=== PATIENT | male | born 1990 | race African-American/Black ===

== ENCOUNTER 2021-11-03 19:38 | Outpatient (REF) | payer BC, SELFPAY ==
[2021-11-03 21:09] LABS: Abs Immature Grans 0.04 10^3/uL (0.0-0.06); Absolute Basophil Count 0.08 10^3/uL (0.0-0.2); Absolute Lymphocyte Count 2.57 10^3/uL (1.2-3.4); Absolute Monocyte Count 0.58 10^3/uL (0.1-0.8); Absolute Neutrophil Count 5.63 10^3/uL (1.2-6.7); Basophils % 0.9; Eosinophils % 2.2; HCT 46.9 % (40.0-50.0); HGB 16.1 g/dL (13.5-17.5); Immature Grans % 0.4; Lymphocytes % 28.2; MCH 32.3 pg (27.0-33.0); MCHC 34.3 % (32.0-36.0); MCV 94.2 fL (80-95); MPV 9.6 fL (8.0-11.0); Monocytes % 6.4; Neutrophils % 61.9; Nucleated RBC 0 %; Platelet Count 246 10^3/uL (130-400); RBC 4.98 10^6/uL (4.36-5.78); RDW 11.4 % (11.8-14.1); RDW-SD 39.4 fL
[2021-11-03 21:12] LABS: Anion Gap 8.3 mmol/L (3-11); BUN 15 mg/dL (7-18); CO2 28.7 mmol/L (21.0-32.0); CREATININE 1.1 mg/dL (0.70-1.30); Chloride 102 mmol/L (98-107); Glucose 95 mg/dL (74-106); Potassium 4.3 mmol/L (3.5-5.1); Sodium 139 mmol/L (136-145)
== END 2021-11-03 19:39 | disposition home or self-care (01) ==
LOC: LBN 19:38
PROVIDERS: PCP Family Medicine; Visit Provider Family Medicine
DX: R03.0 Elevated blood-pressure reading, without diagnosis of hypertension (principal)
CPT/HCPCS: 80048; 85025

== ENCOUNTER 2022-06-01 15:33 | Outpatient (REF) | payer BC, SELFPAY ==
[2022-06-01 19:42] LABS: TSH (W/Ref FT4) 1.48 uIU/mL (0.36-3.74)
== END 2022-06-01 15:34 | disposition home or self-care (01) ==
LOC: NCHCN 15:33
PROVIDERS: PCP Family Medicine; Visit Provider Family Medicine
DX: R03.0 Elevated blood-pressure reading, without diagnosis of hypertension (principal)
CPT/HCPCS: 84443

== ENCOUNTER 2022-12-28 17:20 | Outpatient (REF) | payer BC, SELFPAY ==
[2022-12-28 18:34] LABS: Calculated LDL 192 mg/dL (<100); Cholesterol 290 mg/dL (<200); Estimated GFR 102.55 (mL/min/1.73m2); HDL Cholesterol 54 mg/dL (40-60); Triglyceride 223 mg/dL (<150)
[2022-12-30 11:20] LABS: Hepatitis C Ab w Rflx HCV PCR Negative (Negative)
== END 2022-12-28 17:21 | disposition home or self-care (01) ==
LOC: NCHCN 17:20
PROVIDERS: PCP Family Medicine; Visit Provider Family Medicine
DX: Z00.00 Encounter for general adult medical examination without abnormal findings (principal); Z11.59 Encounter for screening for other viral diseases; Z13.220 Encounter for screening for lipoid disorders
CPT/HCPCS: 80061; 86803; 82565

== ENCOUNTER 2023-01-20 18:16 | Emergency (ER) | payer BC, SELFPAY ==
[2023-01-20 18:32] VITALS: BP 137/84; PULSE 84; RESP 16; TEMP 36.6; O2SAT 98
--- NOTE | 2023-01-20 19:50 | ED.GENADUL_ITS ---
Discharge Plan Disposition Patient Disposition: Home Discharge Details Clinical Impression: Finger laceration Primary Care Provider: Arminda Vargas ED Provider: Mao Herman Home Meds and New Rx's Prescriptions: No Action amlodipine 5 mg tablet 5 mg PO DAILY Ondansetron ODT, 3 tabs/btl [Zofran ODT, 3 tabs/btl] 4 MG bottle 4 mg PO DISPENSE Qty: 3 0RF Rx Instructions: HOME USE. 1 TABLET EVERY 6 HRS IF NEEDED FOR NAUSEA Discharge Instructions Instructions: Finger Laceration (ED), Skin Adhesive Care (ED) Additional Instructions: Watch for any signs of infection and return immediately to the emergency department if these occur. Otherwise keep wound clean and dry. Referrals: Arminda Vargas MD [Primary Care Provider] - Discharge Data Discharge Date/Time-TO BE ENTERED AT DEPARTURE: 01/20/23 19:57 Medical Decision Making Superficial flap laceration to right index finger. Wound edges were slightly revised otherwise flap was put in place with Dermabond. Wound was well approximated. This was done after thorough irrigation and cleansing of wound sterile technique was utilized. Patient up-to-date on tetanus. after discussion of diagnosis and plan of care patient has no further needs, questions, or concerns and states clear understanding to return to the emergency department for any worsening symptoms. This documentation was generated using [employer] dictation system, please disregard any oddities of phrase or misspellings. HPI General Mode of arrival: ambulatory . Date/Time Provider Initiated Documentation: 01/20/23 19:50 . Limitations to Documentation: no limitations . Information obtained by: patient . History of Present Illness 33 year old M presents to the emergency department with the chief complaint of Right index finger laceration, described as mild, with intensity rated at 4. Quality is described as sharp, and is localized to the right. Patient reports no radiation. Patient started experiencing this hour(s) (1) and it has been constant. No relieving factors improve symptom(s), No exacerbating factors reported . Patient notes no other symptoms.. Patient did receive the following treatments prior to arrival, none Related Data Home Medications Medication Instructions Recorded Confirmed Ondansetron ODT, 3 tabs/btl 4 mg PO DISPENSE ##3 12/05/17 01/20/23 [Zofran ODT, 3 tabs/btl] amlodipine 5 mg tablet 5 mg PO DAILY 11/26/21 01/20/23 Previous Rx's Medication Instructions Recorded Ondansetron ODT, 3 tabs/btl 4 mg PO DISPENSE ##3 12/05/17 [Zofran ODT, 3 tabs/btl] Allergies Allergy/AdvReac Type Severity Reaction Status Date / Time No Known Allergies Allergy Unverified 01/13/23 13:01 General Stated Complaint: Laceration CORINA: 4 Review of Systems Narrative: 6 systems reviewed and unremarkable except what is marked below. Musculoskeletal Musculoskeletal: Denies limited range of motion, Denies numbness and Denies tingling Integumentary/Breasts Skin/Breast: Reports as per HPI and Reports wounds Neurologic Neurologic: Denies numbness and Denies tingling PFSH All Active Problems Finger laceration (Acute) Deviated nasal septum (Acute) Snoring (Acute) Nasal congestion (Acute) Nasal obstruction (Acute) Medical History Anxiety disorder Elevated blood pressure reading Family History Father , ovedose Substance use disorder Mother Alcohol use disorder Social History Smoking/Tobacco Use Status: Never Smoking risk assessment performed?: Yes Alcohol Intake: current Alcohol Intake frequency: a few times a week Drug use: Never Household members: spouse and children 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 Pets and animals: Yes Pets and animals: dog(s) What is your relationship status?: Panel score (0-1 are the most socially isolated patients): 1 Do you feel safe in your relationship?: Yes Exam Const General: cooperative, no acute distress and not ill appearing Orientation: alert, awake and oriented x3 HENMT Mouth: moist mucous membranes Resp Effort & Inspection: normal respiratory effort, able to speak in complete sentences and no respiratory distress Cardio Rate: regular rate Rhythm: regular rhythm Pulses: normal peripheral pulses Skin General skin exam: no rashes or lesions noted Neuro General: patient alert, patient awake, patient oriented x3, moves all extremities and no focal motor deficits Sensory Exam: no sensory deficits noted Extrem General: normal exam except as noted Right upper extremity: hand Details: neuromotor exam normal, neurosensory exam normal, tendon exam normal, tenderness Location: of the 2nd digit Location: at the distal phalanx, normal ROM of fingers and laceration 2nd digit palmar aspect distal Details: flap, avulsion, actively bleeding, superficial, with motor nerve function intact and with sensation intact; not involving subcutaneous tissue Course Vital Signs Vital signs: Vital Signs Temperature 36.6 C 01/20/23 18:32 Pulse 84 01/20/23 18:32 Respiratory Rate 16 01/20/23 18:32 Blood Pressure 137/84 01/20/23 18:32 Pulse Oximetry 98 01/20/23 18:32 Temperature 36.6 C 01/20/23 18:32 Temperature Source Oral 01/20/23 18:32 Pulse 84 01/20/23 18:32 Respiratory Rate 16 01/20/23 18:32 Blood Pressure 137/84 01/20/23 18:32 Blood Pressure Position Sitting 01/20/23 18:32 Pulse Oximetry 98 01/20/23 18:32 Oxygen Delivery Method Room Air 01/20/23 18:32 Oxygen Flow Rate 0 01/20/23 18:32 Pain Level 1 01/20/23 18:32
== END 2023-01-20 19:57 | disposition home or self-care (01) ==
PROVIDERS: Emergency Provider Nurse Practitioner Family; PCP Family Medicine
DX: S61.210A Laceration without foreign body of right index finger without damage to nail, initial encounter (principal); W45.8XXA Other foreign body or object entering through skin, initial encounter; Y93.G9 Activity, other involving cooking and grilling
CPT/HCPCS: 99282; 99283

== ENCOUNTER 2024-05-16 22:33 | Outpatient (REF) | payer BC, SELFPAY | END 2024-05-16 22:34 | disposition home or self-care (01) | LOC: LBN 22:33 | PROVIDERS: PCP Family Medicine; Visit Provider Nurse Practitioner Family | DX: L08.89 Other specified local infections of the skin and subcutaneous tissue (principal) | CPT/HCPCS: 87077; 87070; 87186; 87205 ==

== ENCOUNTER 2025-03-06 10:39 | Emergency (ER) | payer BC, SELFPAY ==
[2025-03-06 10:43] VITALS: BP 148/93; PULSE 91; RESP 16; TEMP 36.4; O2SAT 98
[2025-03-06 11:01] VITALS: RESP 18
--- NOTE | 2025-03-06 11:15 | DI.CT_ITS ---
Exam(s) CT HEAD WO EXAM: CT HEAD WO CLINICAL HISTORY: confusion, dizzy, right ear pain. TECHNIQUE: Imaging Protocol: Axial computed tomography images with coronal and sagittal reformatted images were created and reviewed COMPARISON: No exams were available for comparison FINDINGS: There are no skull fractures. There is no fluid in the visualized paranasal sinuses. Mastoid air sarah ls are also clear. There is no fluid in the middle ear cavities. There is no evidence of intracranial hemorrhage, mass effect, or shift of midline structures. There are no extra-axial fluid collections. The ventricles are not enlarged or shifted and there is no blo od within the ventricular system nor within the basal cisterns. IMPRESSION: No acute intracranial findings on this noninfused CT scan of the brain. Report called by myself to emergency room 03/06/2025 at 12:13 p.m. RADIATION DOSE DELIVERED: 932.16mGy.cm Total DLP DATA REPOSITORY: All CT scans at this facility are submitted to the National Radiology Data Registry (NRDR) Dose Index Registry (DIR) with the [employer] (ACR). RADIATION OPTIMIZATION: All CT scans at this facility use at least one of these dose optimization te chniques: automated exposure control; mA and/or kV adjustment per patient size (includes targeted exa ms where dose is matched to clinical indication); or iterative reconstruction.
[2025-03-06 11:46] LABS: Bilirubin Negative (Negative); Blood Negative (Negative); Clarity Clear (Clear); Glucose Negative (Negative); Ketones Negative (Negative); Leukocyte Esterase Negative (Negative); Nitrite Negative (Negative); Urobilinogen 0.2 mg/dL (Up to 0.2); pH 5.5 (5-8)
[2025-03-06 12:02] VITALS: BP 148/90; PULSE 81; O2SAT 100
[2025-03-06 12:06] LABS: Abs Immature Grans 0.02 10^3/uL (0.0-0.06); Absolute Basophil Count 0.14 10^3/uL (0.0-0.2); Absolute Eosinophil Count 0.08 10^3/uL (0.0-0.7); Absolute Lymphocyte Count 2.14 10^3/uL (1.2-3.4); Absolute Monocyte Count 0.59 10^3/uL (0.1-0.8); Absolute Neutrophil Count 3.59 10^3/uL (1.2-6.7); Basophils % 2.1 %; Eosinophils % 1.2 %; HCT 42.9 % (40.0-50.0); HGB 14.1 g/dL (13.5-17.5); Immature Grans % 0.3 %; Lymphocytes % 32.6 %; MCHC 32.9 % (32.0-36.0); MCV 85 fL (80-95); MPV 8.8 fL (8.0-11.0); Neutrophils % 54.8 %; Platelet Count 260 10^3/uL (130-400); RBC 5.03 10^6/uL (4.36-5.78); RDW 18.4 % (11.8-14.1); RDW-SD 56.4 fL; WBC 6.56 10^3/uL (4.4-10.8)
[2025-03-06 12:06] LABS: *AMPHETAMINES SCREEN URINE Negative (Negative); *BARBITURATES SCREEN URINE Negative (Negative); *BENZODIAZEPINES SCREEN URINE Negative (Negative); Cannabinoids THC Negative (Negative); Cocaine Screen,Urine Negative (Negative); METHADONE URINE SCREEN Negative (Negative); OPIATES URINE SCREEN Negative (Negative); Tricyclic Antidepressants Negative (Negative)
[2025-03-06 12:08] LABS: ESR 18 mm/hr (0-15)
[2025-03-06 12:31] LABS: ETHANOL BLOOD 325.2 mg/dL (<10)
[2025-03-06 12:38] LABS: ALT 125 U/L (16-63); AST 134 U/L (15-37); Albumin 4.4 g/dL (3.4-5.0); Alkaline Phosphatase 105 U/L (46-116); Anion Gap 10.7 mmol/L (3-11); BUN 6 mg/dL (7-18); Bilirubin, Total 0.7 mg/dL (0.2-1.0); CO2 29.3 mmol/L (21.0-32.0); CREATININE 0.9 mg/dL (0.70-1.30); Calcium 9.2 mg/dL (8.5-10.1); Chloride 102 mmol/L (98-107); Estimated GFR 114.22 (mL/min/1.73m2); Glucose 99 mg/dL (74-106); Magnesium 2.3 mg/dL (1.8-2.4); Potassium 4.4 mmol/L (3.5-5.1); Sodium 142 mmol/L (136-145); TSH (W/Ref FT4) 1.44 uIU/mL (0.36-3.74); Total Protein 9.8 g/dL (6.4-8.2)
[2025-03-06 12:39] LABS: C-Reactive Protein < 0.50 mg/dL (<or=0.5)
[2025-03-06 14:08] VITALS: BP 146/94; PULSE 89; RESP 18; O2SAT 99
--- NOTE | 2025-03-07 08:23 | W.ED.GENAD ---
Discharge Plan Disposition Patient Disposition: Home Condition: Stable Discharge Details Clinical Impression: Anxiety, Alcohol dependence, Elevated transaminase level Primary Care Provider: Ellis Chacon ED Provider: Christi Mccord Home Meds and New Rx's Prescriptions: Continued amlodipine 5 mg tablet 5 mg PO DAILY Discharge Instructions Instructions: Alcohol Use Disorder (DC) Additional Instructions: you have an appointment on March 20 at 140 in the afternoon with your pcp, it is really important that you go to this appointment I recommend starting AA meetings and working on going to rehabilitation you will need counseling appt , please talk to your doctor please taper down by one drink daily, never stop drinking alcohol abruptly follow up with [facility] have your liver enzymes rechecked by pcp Referrals: [facility] [Outside] [facility] [Outside] Ellis Chacon [Primary Care Provider] - Discharge Data Discharge Date/Time-TO BE ENTERED AT DEPARTURE: 03/06/25 14:32 HPI General Date/Time Provider Initiated Documentation: 03/06/25 10:47. HPI Narrative: 35-year-old male with anxiety, intermittent right ear tinnitus, and increased alcohol consumption. Significant anxiety at home, occasional confusion noted by , unemployed, two children. Intermittent right ear pain with tinnitus, history of multiple childhood concussions, no recent head injuries. Alcohol intake: six beers and several mixed drinks nightly, also drinks but less, unemployed. Related Data Home Medications ?Medication ?Instructions ?Recorded ?Confirmed amlodipine 5 mg tablet 5 mg PO DAILY 11/26/21 03/06/25 Allergies Allergy/AdvReac Type Severity Reaction Status Date / Time No Known Allergies Allergy Unverified 03/06/25 10:50 General Stated Complaint: Anxiety CORINA: 3 Exam Narrative Exam Narrative: General Appearance: Alert and oriented x4. Vital signs: Within normal limits. HEENT: PERRLA, fluid behind right tympanic membrane, no infection, no trauma to scalp visualized no cervical spine tenderness Respiratory: Lungs clear. Cardiovascular: Regular cardiac rate and rhythm. Back, Musculoskeletal: Spine tenderness. Skin: Warm and dry, no rash. Neurological: Normal. Ambulatory with cautious gait able to follow basic commands Other observations: cautious gait. Course Vital Signs Vital signs: Vital Signs Temperature 36.4 C L 03/06/25 10:43 Pulse 91 H 03/06/25 10:43 Respiratory Rate 16 03/06/25 10:43 Blood Pressure 148/93 H 03/06/25 10:43 Pulse Oximetry 98 03/06/25 10:43 Temperature 36.4 C L 03/06/25 10:43 Temperature Source Oral 03/06/25 10:43 Pulse 89 03/06/25 14:08 Respiratory Rate 18 03/06/25 14:08 Respiratory Effort Normal, Non-Labored 03/06/25 14:08 Respiratory Depth Normal 03/06/25 14:08 Respiratory Pattern Normal 03/06/25 14:08 Blood Pressure 146/94 H 03/06/25 14:08 Blood Pressure Mean 111 03/06/25 14:08 Blood Pressure Position Sitting 03/06/25 14:08 Pulse Oximetry 99 03/06/25 14:08 Oxygen Delivery Method Room Air 03/06/25 14:08 Oxygen Flow Rate 0 03/06/25 14:08 Pain Level 0 03/06/25 10:43 Lab/Test Results Lab/Test Results: Laboratory Tests Range/Units 03/06/25 03/06/25 11:34 11:57 WBC (4.4-10.8) 10^3/uL 6.56 RBC (4.36-5.78) 10^6/uL 5.03 Hgb (13.5-17.5) g/dL 14.1 Hct (40.0-50.0) % 42.9 MCV (80-95) fL 85 MCH (27.0-33.0) pg 28.0 MCHC (32.0-36.0) % 32.9 RDW (11.8-14.1) % 18.4 H Plt Count (130-400) 10^3/uL 260 MPV (8.0-11.0) fL 8.8 Immature Gran % % 0.3 Neutrophils % % 54.8 Lymphocytes % % 32.6 Monocytes % % 9.0 Eosinophils % % 1.2 Basophils % % 2.1 Nucleated RBC % (0.0-0.3) % 0.0 Absolute Neutrophils (1.2-6.7) 10^3/uL 3.59 Absolute Lymphocytes (1.2-3.4) 10^3/uL 2.14 Absolute Monocytes (0.1-0.8) 10^3/uL 0.59 Absolute Eosinophils (0.0-0.7) 10^3/uL 0.08 Absolute Basophils (0.0-0.2) 10^3/uL 0.14 ESR (0-15) mm/hr 18 H Sodium (136-145) mmol/L 142 Potassium (3.5-5.1) mmol/L 4.4 Chloride (98-107) mmol/L 102 Carbon Dioxide (21.0-32.0) mmol/L 29.3 Anion Gap (3-11) mmol/L 10.7 BUN (7-18) mg/dL 6 L Creatinine (0.70-1.30) mg/dL 0.9 Est GFR (CKD-EPI 2020) (mL/min/1.73m2) 114.22 Glucose (74-106) mg/dL 99 Calcium (8.5-10.1) mg/dL 9.2 Magnesium (1.8-2.4) mg/dL 2.3 Total Bilirubin (0.2-1.0) mg/dL 0.7 AST (15-37) U/L 134 H ALT (16-63) U/L 125 H Alkaline Phosphatase (46-116) U/L 105 C-Reactive Protein (<or=0.5) mg/dL < 0.50 Total Protein (6.4-8.2) g/dL 9.8 H Albumin (3.4-5.0) g/dL 4.4 TSH (0.36-3.74) uIU/mL 1.44 Urine Color (Yellow) Yellow Urine Clarity (Clear) Clear Urine pH (5-8) 5.5 Ur Specific Barton (1.005-1.025) 1.010 Urine Protein (Neg-Trace) mg/dL Negative Urine Ketones (Negative) mg/dL Negative Urine Blood (Negative) Negative Urine Nitrite (Negative) Negative Urine Bilirubin (Negative) Negative Urine Urobilinogen (Up to 0.2) mg/dL 0.2 Ur Leukocyte Esterase (Negative) Negative Urine Glucose (Negative) mg/dL Negative Urine Opiates Screen (Negative) Negative Urine Methadone Screen (Negative) Negative Ur Barbiturates Screen (Negative) Negative Ur Tricyclics Screen (Negative) Negative Ur Amphetamines Screen (Negative) Negative U Benzodiazepines Scrn (Negative) Negative Urine Cocaine Screen (Negative) Negative Ur THC Screen (Negative) Negative Ethyl Alcohol (<10) mg/dL 325.2 H Medical Decision Making Blood alcohol level 325, elevated liver enzymes (AST 134, ALT 125), normal urinalysis. CT head: no acute abnormality. Initial Assessment: 35-year-old male with anxiety, intermittent right ear ringing, increased alcohol consumption, and general anxiety. reports occasional confusion. Elevated liver enzymes and high blood alcohol level. Differential Diagnosis: - Alcohol Use Disorder: Elevated liver enzymes (AST 134, ALT 125), blood alcohol level 325. Advised multivitamin, thiamine supplementation, gradual reduction of alcohol intake by one drink per day until abstinence. Remove all alcohol from home once both parents taper off. 's appointment today at 1600 hours, earliest available appointment for him on 03/20/2025. Recovery phone assessment and daily calls for 10 days. Interested in AA meetings. Discussed follow-up with primary care physician and Recovery. - Anxiety: Anxiety at home, possibly exacerbated by alcohol use and family situation. Encouraged to seek support and resources. Follow-up with primary care physician for evaluation and management. - Tinnitus: Intermittent right ear ringing and pain, fluid behind right tympanic membrane, no infection. Monitor symptoms and report changes. ED Course: - Blood alcohol level measured at 325. - Liver enzymes elevated (AST 134, ALT 125). - Urinalysis within normal limits. - Tick panel pending. - CT head shows no evidence of acute abnormality, read by me. - Multivitamin encouraged. - Thiamine supplementation discussed. - Discussion regarding Librium, decided against due to risk-benefit analysis. - Plan to taper off alcohol by one drink daily. - 's appointment at 1600 hours with PCP. - Called [facility] for earlier appointment, scheduled for 03/20/2025. - Recovery phone assessment and daily calls for 10 days. - Patient interested in AA meetings. - Spent 15 minutes discussing plan with patient and . Final Assessment: Elevated liver enzymes and high blood alcohol level. Anxiety possibly exacerbated by alcohol use and family situation. Intermittent right ear ringing and pain with fluid behind tympanic membrane. Clinical Impression: - Alcohol Use Disorder - Anxiety - Tinnitus Disposition: - Follow-Up: 's appointment today at 1600 hours with PCP. Patient's appointment on 03/20/2025. Recovery phone assessment and daily calls for 10 days. Follow-up with primary care physician. Patient Education: Discussed importance of tapering off alcohol, multivitamin, thiamine supplementation, and follow-up with primary care physician and Recovery. MDM Components Evaluation: - Number of Differential Diagnoses or Management Options: Alcohol Use Disorder, Anxiety, Tinnitus - Amount and Complexity of Data Reviewed: Blood alcohol level, liver enzymes, urinalysis, tick panel, CT head - Risk of Complication and Morbidity or Mortality: High risk due to elevated liver enzymes, high blood alcohol level, and potential complications from alcohol use and anxiety. Quality:SDOH Health Related Social Needs: No Data to Display PFSH All Active Problems (Updated 03/06/25 @ 14:16 by THANG Patton) Elevated transaminase level (Acute) Alcohol dependence (Acute) Anxiety (Chronic) Deviated nasal septum (Acute) Snoring (Acute) Nasal congestion (Acute) Nasal obstruction (Acute) Medical History Anxiety disorder Elevated blood pressure reading Family History Father , ovedose Substance use disorder Mother Alcohol use disorder Social History Smoking/Tobacco Use Status: Never Smoking risk assessment performed?: Yes Alcohol Intake: current Alcohol Intake frequency: a few times a week Drug use: Never Household members: spouse and children 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 Pets and animals: Yes Pets and animals: dog(s) What is your relationship status?: Panel score (0-1 are the most socially isolated patients): 1 Do you feel safe at home: Yes Do you feel safe in your relationship?: Yes PAWSS Have you Been Recently Intoxicated or Drunk Within the Last 30 days?: Yes Have you Ever Experienced Previous Episodes of Alcohol Withdrawal?: Yes Have you ever Experienced Withdrawal Seizures?: No Have you ever Experienced Delirium Tremens(DT)s?: Yes Have you ever undergone Alcohol Rehabilitation Treatment (i.e, inpt ot outpatient treatment programs)?: No Have you ever Experienced Blackouts?: Yes Have you ever Combined Alcohol with other Downers within the last 90 days?: No Have you ever Combined Alcohol with any other Substance of Abuse during the last 90 days?: Yes Positive Blood Alcohol level on Presentation? [PCS.BAL]: No Evidence of Increased Autonomic Activity (i.e. HR>120, tremor, sweating, agitation, nausea)?: No Result: 6
[2025-03-07 12:14] LABS: Lyme Ab w Rflx to Lyme Confirm Negative (Negative)
[2025-03-09 14:17] LABS: Anaplasma phagocytophilum Negative (Negative); B. miyamotoi PCR Negative (Negative); Babesia divergens/MO-1 Negative (Negative); Babesia duncani Negative (Negative); Babesia microti Negative (Negative); Ehrlichia chaffeensis Negative (Negative); Ehrlichia ewingii/canis Negative (Negative); Ehrlichia muris eauclairensis Negative (Negative)
== END 2025-03-06 14:32 | disposition home or self-care (01) ==
PROVIDERS: Emergency Provider Physician Assistant; PCP Family Medicine
DX: F41.9 Anxiety disorder, unspecified (principal); F10.220 Alcohol dependence with intoxication, uncomplicated; R74.01 Elevation of levels of liver transaminase levels; Y90.8 Blood alcohol level of 240 mg/100 ml or more
CPT/HCPCS: 36415; 80053; 80307; 85652; 87798; 99283; 70450; 80320; 81003; 83735; 84443; 85025; 86140; 86618

== ENCOUNTER 2025-04-12 12:21 | Outpatient (REF) | payer BC, SELFPAY ==
[2025-04-12 15:14] LABS: Abs Immature Grans 0.05 10^3/uL (0.0-0.06); HCT 40.1 % (40.0-50.0); HGB 13.0 g/dL (13.5-17.5); Immature Grans % 0.4 %; MCH 27.4 pg (27.0-33.0); MCHC 32.4 % (32.0-36.0); MCV 85 fL (80-95); MPV 9.4 fL (8.0-11.0); Platelet Count 316 10^3/uL (130-400); RBC 4.74 10^6/uL (4.36-5.78); RDW 16.3 % (11.8-14.1); RDW-SD 50.4 fL; WBC 12.52 10^3/uL (4.4-10.8)
[2025-04-12 15:35] LABS: ESR 52 mm/hr (0-15)
[2025-04-12 15:40] LABS: ALT 64 U/L (16-63); AST 36 U/L (15-37); Albumin 4.2 g/dL (3.4-5.0); Alkaline Phosphatase 108 U/L (46-116); Anion Gap 11.9 mmol/L (3-11); BUN 11 mg/dL (7-18); Bilirubin, Total 0.8 mg/dL (0.2-1.0); C-Reactive Protein 4.40 mg/dL (<or=0.5); CO2 25.1 mmol/L (21.0-32.0); Calcium 9.9 mg/dL (8.5-10.1); Chloride 100 mmol/L (98-107); Estimated GFR 118.36 (mL/min/1.73m2); Glucose 78 mg/dL (74-106); Potassium 4.3 mmol/L (3.5-5.1); Sodium 137 mmol/L (136-145); Total Protein 8.3 g/dL (6.4-8.2); Uric Acid 6.4 mg/dL (3.5-7.2)
[2025-04-16 11:08] LABS: Lyme Ab w Rflx to Lyme Confirm Negative (Negative)
[2025-04-16 16:15] LABS: B. miyamotoi PCR Negative (Negative); Babesia divergens/MO-1 Negative (Negative); Ehrlichia muris eauclairensis Negative (Negative)
== END 2025-04-12 12:22 | disposition home or self-care (01) ==
LOC: NCHCN 12:21
PROVIDERS: PCP Family Medicine; Visit Provider Student in an Organized Health Care Education/Training Program
DX: M25.562 Pain in left knee (principal)
CPT/HCPCS: 80053; 85652; 87798; 84550; 85025; 86140; 86618